=== PATIENT | male | born 1995 | race Hispanic/Latino ===

== ENCOUNTER 2020-05-28 14:28 | Outpatient (CLI) | payer OTHER ==
--- NOTE | 2020-05-28 14:53 | RAD ---
SINUSES FERGUSON VIEW ONLY: DATE: 05/28/2020 HISTORY: MRI clearance. FINDINGS/IMPRESSION: No radiopaque foreign body is seen. POS: OFF
--- NOTE | 2020-05-28 17:29 | MRI ---
MRI OF LEFT FOOT PERFORMED WITHOUT CONTRAST ENHANCEMENT: History: Lateral and medial foot pain. 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 FINDINGS: The Achilles tendon is normal in appearance. Anterior extensor tendon group is normal in appearance. There is some trace tenosynovitis changes of the posterior tibialis tendon. The flexor digitorum long us tendon is intact. There are also tenosynovitis changes of the flexor hallucis longus tendon, more fluid than would be expected for the small amount of joint effusion within the ankle. Sinus tarsi region is normal. Plantar fascia is intact. No osteochondral lesion of the talar dome. Ligaments of the ankle joint appear intact. Subtalar joint is normal. IMPRESSION: 1. Tenosynovitis changes of the flexor hallucis longus tendon. 2. No evidence of ankle joint injury. 3. Intact appearing peroneus longus and brevis tendons. POS: AH
== END 2020-05-28 14:29 | disposition home or self-care (01) ==
LOC: BICMRI 14:28
PROVIDERS: ATTEND Family Medicine
DX: S93.422D Sprain of deltoid ligament of left ankle, subsequent encounter (principal); M25.572 Pain in left ankle and joints of left foot; M65.872 Other synovitis and tenosynovitis, left ankle and foot
CPT/HCPCS: 70210